=== PATIENT | male | born 1950 | race Caucasian/White ===

== ENCOUNTER 2017-11-24 17:58 | Emergency (ER) | payer OTHER ==
[2017-11-24] MEDS ORDERED: ASPIRIN 81 MG TABLET, CHEWABLE PO ONE (20:00)
--- NOTE | 2017-11-24 20:03 | ER Document Report ---
ED Medical Screen (RME) - General Chief Complaint: Chest Pain Stated Complaint: CHEST PAIN Time Seen by Provider: 11/24/17 19:56 Notes: RAPID MEDICAL EVALUATION DISCLOSURE I have seen this patient as part of a Rapid Medical Evaluation and, if applicable, placed any initially appropriate orders. The patient will be seen and fully evaluated, including a full history and physical exam, by a provider ( in Main ED or Fast Track) when a room becomes available. 66-year-old male here with complaints of chest pain shortness of breath left arm started over the past few days and left arm pain and tingling that started approximately 1 week ago. The pain is worse with exertion. He has also had diaphoresis lightheadedness nausea with the chest pain. He has been taking baby aspirin every night for the symptoms with minimal relief. EXAM CTAB RRR TRAVEL OUTSIDE OF THE [place] IN LAST 30 DAYS: No - Related Data Allergies/Adverse Reactions: acetaminophen [From Tylenol] Allergy (Verified 01/06/15 10:23) Past Medical History - Social History Chew tobacco use (# tins/day): Yes Frequency of alcohol use: Rare Drug Abuse: None - Past Medical History Cardiac Medical History: Reports: Hx Hypercholesterolemia Denies: Hx Congestive Heart Failure, Hx Coronary Artery Disease, Hx Hypertension Pulmonary Medical History: Reports: Hx Pneumonia Neurological Medical History: Reports: Hx Migraine Renal/ Medical History: Reports: Hx Kidney Stones. Denies: Hx Peritoneal Dialysis Malignancy Medical History: Reports Hx Skin Cancer GI Medical History: Reports: Hx Gastroesophageal Reflux Disease, Hx Colonoscopy. Denies: Hx Endoscopy Musculoskeltal Medical History: Reports Hx Arthritis, Reports Hx Musculoskeletal Trauma - big toe right foot Psychiatric Medical History: Reports: Hx Obsessive Compulsive Disorder Denies: Hx Depression Traumatic Medical History: Reports: Hx Fractures, Hx Traumatic Brain Injury Past Surgical History: Reports: Hx Appendectomy, Hx Genitourinary Surgery - bladder, Hx Oral Surgery, Hx Orthopedic Surgery - bilateral knee, Hx Tonsillectomy - Immunizations Immunizations up to date: No Hx Diphtheria, Pertussis, Tetanus Vaccination: No Physical Exam - Vital signs Vitals: Temp Pulse Resp BP Pulse Ox 97.4 F 73 16 150/78 H 97 11/24/17 18:49 11/24/17 18:49 11/24/17 18:49 11/24/17 18:49 11/24/17 18:49 Course - Vital Signs Vital signs: Temp Pulse Resp BP Pulse Ox 97.4 F 73 16 150/78 H 97 11/24/17 18:49 11/24/17 18:49 11/24/17 18:49 11/24/17 18:49 11/24/17 18:49
--- NOTE | 2017-11-24 20:16 | EKG REPORT ---
SEVERITY:- NORMAL ECG - SINUS RHYTHM : Confirmed by: Chiquita Haines 24-Nov-2017 20:15:11
[2017-11-24 20:48] LABS: ABSOLUTE EOSINOPHILS # (AUTO) 0.2 10^3/uL (0.0-0.6); ABSOLUTE LYMPHOCYTES (AUTO) 1.9 10^3/uL (0.5-4.7); ABSOLUTE MONOCYTES (AUTO) 0.7 10^3/uL (0.1-1.4); ABSOLUTE NEUT (AUTO) 3.7 10^3/uL (1.7-8.2); BASOPHILS % (AUTO) 0.7 % (0-2); EOSINOPHILS % (AUTO) 2.9 % (0-6); HEMATOCRIT 46.8 % (37.9-51.0); HEMOGLOBIN 15.8 g/dL (13.5-17.0); LYMPHOCYTES % (AUTO) 28.8 % (13-45); MEAN CORPUSCULAR HEMOGLOBIN 28.7 pg (27.0-33.4); MEAN CORPUSCULAR HGB CONC 33.7 g/dL (32.0-36.0); MEAN CORPUSCULAR VOLUME 85 fl (80-97); MONOCYTES % (AUTO) 10.1 % (3-13); PLATELET COUNT 227 10^3/uL (150-450); RED BLOOD COUNT 5.49 10^6/uL (4.35-5.55); RED CELL DISTRIBUTION WIDTH 13.2 % (11.5-14.0); SEGMENTED NEUTROPHILS % (AUTO) 57.5 % (42-78); TOTAL CELLS COUNTED % (AUTO) 100 %; WHITE BLOOD COUNT 6.4 10^3/uL (4.0-10.5)
[2017-11-24 21:05] LABS: ANION GAP 15 (5-19); BLOOD UREA NITROGEN 15 mg/dL (7-20); CALCIUM 9.7 mg/dL (8.4-10.2); CARBON DIOXIDE 27 mmol/L (22-30); CHLORIDE 104 mmol/L (98-107); GLUCOSE 101 mg/dL (75-110); POTASSIUM 4.5 mmol/L (3.6-5.0); SODIUM 146.3 mmol/L (137-145)
--- NOTE | 2017-11-24 21:16 | RADIOLOGY REPORT (SQ) ---
EXAM DESCRIPTION: CHEST 2 VIEWS COMPLETED DATE/TIME: 11/24/2017 8:51 pm REASON FOR STUDY: CP SOB COMPARISON: Chest x-ray 01/06/2015. EXAM PARAMETERS: NUMBER OF VIEWS: two views TECHNIQUE: Digital Frontal and Lateral radiographic views of the chest acquired. RADIATION DOSE: NA LIMITATIONS: none FINDINGS: LUNGS AND PLEURA: No consolidation, pneumothorax or pleural effusion. MEDIASTINUM AND HILAR STRUCTURES: No masses or contour abnormalities. HEART AND VASCULAR STRUCTURES: Heart normal size. No evidence for failure. BONES: No acute findings. HARDWARE: Orthopedic hardware at the lower cervical spine. IMPRESSION: No acute radiographic finding in the chest. TECHNICAL DOCUMENTATION: JOB ID: [id number] [employer]- All Rights Reserved Reading location - IP/workstation name: [email or web address]
[2017-11-24 21:17] LABS: NT PRO BNP 77 pg/mL (5-900)
[2017-11-24 21:19] LABS: TROPONIN I < 0.012 ng/mL
--- NOTE | 2017-11-24 23:15 | ER Document Report ---
ED General <SUSANNE KIM - Last Filed: 11/25/17 00:47> - General Mode of Arrival: Ambulatory Information source: Patient TRAVEL OUTSIDE OF THE [place] IN LAST 30 DAYS: No <SHABNAM BARRETT - Last Filed: 11/25/17 05:29> - General Chief Complaint: Chest Pain Stated Complaint: CHEST PAIN Time Seen by Provider: 11/24/17 19:56 Notes: Patient is a 66 year old male with a history of an anterior cervical fusion, disc problems at T11-L1, hyperlipidemia, GERD, kidney stones presents to the emergency department complaining of multiple symptoms including chest pain, shortness of breath and left arm pain onset a few days ago. Patient states his chest pain lasts approximately 30 mins and describes it as a pressure on the right side. He further states his shortness of breath is exacerbated with movement. Patient describes his left arm pain as spasms across his arm. Patient had similar symptoms in December 2014 and followed up with a stress test. Patient currently takes Meloxicam. (SHABNAM BARRETT) - Related Data Allergies/Adverse Reactions: acetaminophen [From Tylenol] Allergy (Verified 01/06/15 10:23) Past Medical History - General Information source: Patient - Social History Smoking Status: Former Smoker Chew tobacco use (# tins/day): Yes Frequency of alcohol use: Rare Drug Abuse: None Family History: Arthritis, CAD, CVA, DM, Hyperlipidemia, Hypertension, Malignancy Patient has suicidal ideation: No Patient has homicidal ideation: No - Past Medical History Cardiac Medical History: Reports: Hx Hypercholesterolemia Pulmonary Medical History: Reports: Hx Pneumonia Neurological Medical History: Reports: Hx Migraine Renal/ Medical History: Reports: Hx Kidney Stones Malignancy Medical History: Reports Hx Skin Cancer GI Medical History: Reports: Hx Gastroesophageal Reflux Disease, Hx Colonoscopy Musculoskeltal Medical History: Reports Hx Arthritis, Reports Hx Musculoskeletal Trauma - big toe right foot Psychiatric Medical History: Reports: Hx Obsessive Compulsive Disorder Traumatic Medical History: Reports: Hx Fractures, Hx Traumatic Brain Injury Past Surgical History: Reports: Hx Appendectomy, Hx Genitourinary Surgery - bladder, Hx Oral Surgery, Hx Orthopedic Surgery - bilateral knee, Hx Tonsillectomy, Other - Anterior cervical fusion - Immunizations Immunizations up to date: No Hx Diphtheria, Pertussis, Tetanus Vaccination: No <SHABNAM BARRETT - Last Filed: 11/25/17 05:29> Review of Systems - Review of Systems Constitutional: No symptoms reported EENT: No symptoms reported Cardiovascular: See HPI, Chest pain Respiratory: See HPI Gastrointestinal: No symptoms reported Genitourinary: No symptoms reported Male Genitourinary: No symptoms reported Musculoskeletal: See HPI Skin: No symptoms reported Hematologic/Lymphatic: No symptoms reported Neurological/Psychological: No symptoms reported -: Yes All other systems reviewed and negative <ARNOLDTRALEIGH - Last Filed: 11/25/17 05:29> Physical Exam - General General appearance: Appears well, Alert In distress: None - HEENT Head: Normocephalic, Atraumatic Eyes: Normal Conjunctiva: Normal Extraocular movements intact: Yes Pupils: PERRL Mucous membranes: Normal Neck: Normal - Respiratory Respiratory status: No respiratory distress Chest status: Tender - tender to palpation to the right peristernum. Breath sounds: Normal Chest palpation: Normal - Cardiovascular Rhythm: Regular Heart sounds: Normal auscultation Murmur: No Friction rub: No Gallop: None auscultated - Abdominal Inspection: Striae Distension: No distension Bowel sounds: Normal Tenderness: Nontender Organomegaly: No organomegaly - Back Back: Normal - Extremities General upper extremity: Normal ROM General lower extremity: Normal ROM - Neurological Neuro grossly intact: Yes Cognition: Normal Orientation: AAOx4 [place] Coma Scale Eye Opening: Spontaneous [place] Coma Scale Verbal: Oriented [place] Coma Scale Motor: Obeys Commands [place] Coma Scale Total: 15 Speech: Normal - Psychological Associated symptoms: Normal affect, Normal mood - Skin Skin Temperature: Warm Skin Moisture: Dry Skin Color: Normal <ARNOLD,TAMLEIGH - Last Filed: 11/25/17 05:29> - Vital signs Vitals: Temp Pulse Resp BP Pulse Ox 97.4 F 73 16 150/78 H 97 11/24/17 18:49 11/24/17 18:49 11/24/17 18:49 11/24/17 18:49 11/24/17 18:49 Course - Laboratory Result Diagrams: 11/24/17 20:20 11/24/17 20:20 - Diagnostic Test Radiology reviewed: Image reviewed, Reports reviewed - CTA chest shows centilobular emphysematous change. Coronary artery atherosclerosis. No pulmonary embolus. - EKG Interpretation by [place] EKG shows normal: Sinus rhythm, [place], Intervals, QRS Complexes, ST-T Waves Rate: Normal - 78 Rhythm: NSR When compared to previous EKG there are: No significant change <SUSANNE KIM - Last Filed: 11/25/17 00:47> - Laboratory Result Diagrams: 11/24/17 20:20 11/24/17 20:20 <SHABNAM BARRETT - Last Filed: 11/25/17 05:29> - Vital Signs Vital signs: Temp Pulse Resp BP Pulse Ox 98.0 F 75 16 157/88 H 97 11/25/17 01:07 11/25/17 01:07 11/25/17 01:07 11/25/17 01:07 11/25/17 01:07 - Laboratory Laboratory results interpreted by me: 11/24/17 11/24/17 11/24/17 20:20 20:20 20:20 D-Dimer 0.52 H Sodium 146.3 H Creatine Kinase 41 L Discharge <SUSANNE KIM - Last Filed: 11/25/17 00:47> <SHABNAM BARRETT - Last Filed: 11/25/17 05:29> - Discharge Clinical Impression: Chest wall pain, Nonocclusive coronary atherosclerosis of [place] coronary artery Condition: Stable Disposition: HOME, SELF-CARE Additional Instructions: Chest Wall Pain Your chest pain has been diagnosed as coming from the chest wall. This is often caused by straining the muscles or joints in the chest during physical activity, direct trauma, coughing, or vigorous vomiting. Persons with arthritis are especially prone to this type of pain, due to inflammation of the cartilage joints near the breast bone. Occasionally, no cause can be found. Rest from strenuous physical activity. This kind of chest pain is usually made worse by movement of the chest. Depending on the symptoms, we may prescribe medicine for pain, muscle relaxation, and antiinflammatory effects. If the pain is new, and seems to be due to muscle strain, cold packs can help. Otherwise, apply gentle warmth to the painful area for 15 minutes every hour or two. You should contact the doctor immediately if things change. Further evaluation is needed if you develop a fever or cough, if the nature of the pain changes, or if you become short of breath. Your pain appears to be due to chest wall pain. Your CT scan of the chest did show coronary artery atherosclerosis. You should follow-up with your primary care provider and/or mold insert changer to decide about further evaluation of your coronary arteries. RETURN TO THE EMERGENCY ROOM IF ANY NEW OR WORSENING SYMPTOMS. Kirt Attestation: 11/24/17 23:33 I personally performed the services described in the documentation, reviewed and edited the documentation which was dictated to the scribe in my presence, and it accurately records my words and actions. (SUSANNE KIM) Scribe Documentation - Scribe Written by Kirt:: Kirt Bruner, 11/24/2017 23:17 acting as scribe for :: Santi <SHABNAM BARRETT - Last Filed: 11/25/17 05:29>
[2017-11-24 23:42] LABS: CREATINE KINASE 41 U/L (55-170)
--- NOTE | 2017-11-25 00:13 | RADIOLOGY REPORT (SQ) ---
EXAM DESCRIPTION: CTA of the chest per PE protocol with contrast. CLINICAL HISTORY: Exertional shortness of breath, elevated d-dimer{0.52} COMPARISON: None Available. TECHNIQUE: CTA of the chest obtained following the uncomplicated intravenous administration of 100 mL Isovue-370. 3-D/MIP reformatted images of the chest available for evaluation. DLP: 504.48 mGycm FINDINGS: Chest: Pulmonary arteries: Contrast bolus is adequate.No filling defects identified in the pulmonary arteries to suggest pulmonary embolus. Thyroid:No abnormalities of the visualized thyroid. Great Vessels:Great vessels have normal anatomic configuration. Thoracic Aorta: Atherosclerotic calcification of the thoracic aorta. Heart: Coronary artery atherosclerosis. No cardia megaly or pericardial effusion. Lymph Nodes:No enlarged mediastinal lymph nodes identified. Esophagus:No abnormalities of the esophagus identified. Other:No additional findings. Lungs: Centrilobular emphysematous changes. Incidental note of an azygos lobe. Minimal bilateral dependent atelectasis. Pleura:No pleural effusion or pneumothorax. Trachea/Airways:No abnormalities of the visualized trachea or airways. Bones:No destructive osseous lesions. Degenerative change of the spine. Upper Abdomen:Limited images of the upper abdomen demonstrate no definite abnormalities of visualized portions of the liver, gallbladder, pancreas, spleen, adrenal glands, or kidneys. IMPRESSION: 1. No pulmonary embolus identified. 2. Centrilobular emphysematous change. 3. Coronary artery atherosclerosis. This exam was performed according to our departmental dose-optimization program, which includes automated exposure control, adjustment of the mA and/or kV according to patient size and/or use of iterative reconstruction technique.
[2017-11-25 01:16] VITALS: BP 157/88
== END 2017-11-25 01:16 | disposition home or self-care (01) ==
LOC: ER 17:58
DX: R07.89 Other chest pain (principal); I25.10 Atherosclerotic heart disease of native coronary artery without angina pectoris; R06.02 Shortness of breath; M79.602 Pain in left arm; R25.2 Cramp and spasm; Z79.1 Long term (current) use of non-steroidal anti-inflammatories (NSAID); Z88.6 Allergy status to analgesic agent; Z85.828 Personal history of other malignant neoplasm of skin; Z82.49 Family history of ischemic heart disease and other diseases of the circulatory system
CPT/HCPCS: 36415; 71046; 71275; 80048; 82550; 83880; 84484; 85025; 85379; 93005; 93010; 99285